=== PATIENT | female | born 1950 | race Caucasian/White ===

== ENCOUNTER 2019-01-31 07:24 | Day surgery (SDC) | payer MEDICARE, BC ==
[2019-01-31] MEDS ORDERED: ACETAZOLAMIDE 250 MG PO ONE (07:28)
[2019-01-31] MEDS: TETRACAINE HCL 0.5 % 1 DROP SOL ONE ×3 (07:46→08:46)
[2019-01-31] MEDS: KETOROLAC 0.5% OPTH 60 DROP SOL ONE ×2 (07:47→07:59)
[2019-01-31] MEDS: CYCLOPENTOLATE 1% SOL ONE ×2 (07:47→07:59)
[2019-01-31] MEDS: PHENYLEPHRINE HCL 10% OPHTHAL SOL ONE ×2 (07:47→07:59)
[2019-01-31] MEDS ORDERED: MIDAZOLAM 2 MG/2 ML SOL ONE (08:14)
[2019-01-31] MEDS ORDERED: ONDANSETRON HCL 4 MG/2 ML SOL ONE (08:14)
[2019-01-31] MEDS ORDERED: FENTANYL 100MCG/2ML SOL ONE (08:14)
[2019-01-31] MEDS ORDERED: MOXIFLOXACIN HCL OPHTH 5 MG/ML SOL ONE (08:39)
[2019-01-31] MEDS ORDERED: POVIDONE IODINE 5% SOL ONE (08:40)
[2019-01-31] MEDS ORDERED: BSS 500 ML 500 ML IR ONE (08:40)
[2019-01-31] MEDS ORDERED: DEXAMETHASONE 20 MG/5 ML (4 MG/ML SOL) ONE (08:40)
[2019-01-31] MEDS ORDERED: LIDOCAINE HCL 1% MPF 30 SOL ONE (08:40)
[2019-01-31 09:14] VITALS: BP 119/66; PULSE 66; RESP 20; TEMP 96.7; O2SAT 91
== END 2019-01-31 09:34 | disposition home or self-care (01) | DRG 125 ==
LOC: SURG 07:24
PROVIDERS: ATTEND Ophthalmology
DX: H25.89 Other age-related cataract (principal); H40.10X2 Unspecified open-angle glaucoma, moderate stage
CPT/HCPCS: 0191T; 66982; J1100; J2250; J2405; J3010; A9270-GY; C1783; J2001